=== PATIENT | female | born 1940 ===

== ENCOUNTER 2017-04-02 12:50 | Emergency (ER) | payer OTHER ==
[~2017-04-02] VITALS: Ht 152.4 cm; Wt 40.8 kg
[2017-04-02] MEDS ORDERED: INSU300I SQ (13:04)
[2017-04-02] MEDS ORDERED: MEMA10TA PO (13:04)
[2017-04-02] MEDS ORDERED: FLUO10TA PO (13:04)
[2017-04-02] MEDS ORDERED: LORA10TA7 PO (13:04)
[2017-04-02] MEDS ORDERED: ATOR20TA PO (13:04)
--- NOTE | 2017-04-02 13:05 | NUR ---
DR GENAO AT THE BEDSIDE FOR EVAL AND EXAM.
[2017-04-02] MEDS ORDERED: IV NORMAL SALINE 1000 ML BAG IV ONE (13:15)
[2017-04-02] MEDS ORDERED: PANTOPRAZOLE SODIUM 40 MG VIAL IV ONE (13:15)
[2017-04-02] MEDS ORDERED: ONDANSETRON 4 MG/2 ML VIAL IV ONE (13:15)
[2017-04-02] MEDS ORDERED: PANTOPRAZOLE SODIUM 40 MG VIAL ONE (13:35)
[2017-04-02] MEDS ORDERED: ONDANSETRON 4 MG/2 ML VIAL ONE (13:35)
[2017-04-02 14:00] LABS: EOSINOPHILS % (AUTO) 0.1 % (0.0-7.0); HEMATOCRIT 37.8 % (31.2-41.9); HEMOGLOBIN 12.5 g/dL (10.9-14.3); LYMPHOCYTES # (AUTO) 0.4 K/uL (20.0-40.0); LYMPHOCYTES % (AUTO) 3.6 % (20.5-51.5); MEAN CORPUSCULAR HEMOGLOBIN 27.3 uug (24.7-32.8); MEAN CORPUSCULAR HGB CONC 33 g/dL (32.3-35.6); MEAN CORPUSCULAR VOLUME 82.9 fL (75.5-95.3); MONOCYTES # (AUTO) 0.2 K/uL (2.0-10.0); MONOCYTES % (AUTO) 1.7 % (0.0-11.0); NEUTROPHILS # (AUTO) 11.1 K/uL (1.8-8.9); NEUTROPHILS % (AUTO) 94.6 % (38.5-71.5); PLATELET COUNT (AUTO) 416 K/uL (179-408); RED BLOOD CELL COUNT(AUTO) 4.56 MIL/uL (3.63-4.92); WHITE BLOOD COUNT (AUTO) 11.7 K/uL (3.8-11.8)
[2017-04-02 14:02] LABS: CARBON DIOXIDE 28 mmol/L (21-32); CHLORIDE 98 mmol/L (98-107); CREATININE 0.9 mg/dL (0.6-1.3); GLUCOSE 231 mg/dL (74-106); POTASSIUM 3.7 mmol/L (3.5-5.1); UREA NITROGEN, BLOOD 15 mg/dL (7-18)
[2017-04-02 14:19] LABS: ALANINE AMINOTRANSFERASE 18 U/L (14-59); ALKALINE PHOSPHATASE 129 U/L (50-136); ASPARTATE AMINOTRANSFERASE 16 U/L (15-37); BAND % (MANUAL) 4 % (0-10); BILIRUBIN,DIRECT 0.2 mg/dL (0.0-0.2); BILIRUBIN,TOTAL 0.6 mg/dL (0.2-1.0); LYMPHOCYTES % (MANUAL) 2 % (20-40); MONOCYTES % (MANUAL) 2 % (2-10); NEUTROPHILS % (MANUAL) 92 % (42-75); TOTAL PROTEIN, SERUM 8.3 g/dL (6.4-8.2)
--- NOTE | 2017-04-02 14:58 | NUR ---
Patient is resting comfortably in bed with eyes closed, no nausea/vomiting so far. Zofran effective.
--- NOTE | 2017-04-02 16:29 | NUR ---
URINE COLLECTED AND SENT TO LAB.
[2017-04-02 16:35] LABS: *BLOOD, URINE 2+ (NEGATIVE); *COLOR,URINE YELLOW (YELLOW); *KETONES,URINE 1+ (NEGATIVE); *PROTEIN,URINE 1+ (NEGATIVE); LEUKOCYTE ESTERASE ,URINE 1+ (NEGATIVE); NITRITE, URINE NEGATIVE (NEGATIVE); PH,URINE 8.5 (5.0-8.0); UGLUCOSE NEGATIVE (NEGATIVE)
[2017-04-02 16:41] LABS: *CLARITY,URINE SLIGHTLY HAZY (CLEAR)
[2017-04-02 16:42] LABS: *BILIRUBIN,URIN NEGATIVE (NEGATIVE)
[2017-04-02 16:59] LABS: RBC,URINE 20-50 /HPF (0-3)
[2017-04-02 17:00] LABS: BACTERIA,URINE MODERATE /HPF (NONE SEEN); MUCUS,URINE MANY /LPF (0-FEW); SQUAMOUS EPITHELIAL CELL,UR MODERATE /HPF (NONE SEEN)
--- NOTE | 2017-04-02 17:39 | NUR ---
CALLED [facility] FOR PT TRANSFER, ETA [phone]. TRIP # [id number].
--- NOTE | 2017-04-02 17:41 | NUR ---
CALLED [facility] AND SPOKE TO [facility] PT RETURN TO FACILITY.
--- NOTE | 2017-04-02 18:15 | NUR ---
PT TOLORATE PO INTAKE, DENIES N/V.
--- NOTE | 2017-04-02 21:51 | NUR ---
Patient discharged to home in stable conditon. Written and verbal after care instructions given. Patient verbalizes understanding of instructions.
== END 2017-04-02 21:53 | disposition home or self-care (01) ==
LOC: ER 12:50
DX: S22.42XA Multiple fractures of ribs, left side, initial encounter for closed fracture (principal); R11.2 Nausea with vomiting, unspecified; F02.80 Dementia in other diseases classified elsewhere, unspecified severity, without behavioral disturbance, psychotic disturbance, mood disturbance, and anxiety; G30.9 Alzheimer's disease, unspecified; E11.9 Type 2 diabetes mellitus without complications; Z79.4 Long term (current) use of insulin; Z90.49 Acquired absence of other specified parts of digestive tract; X58.XXXA Exposure to other specified factors, initial encounter; Y93.89 Activity, other specified; Y92.89 Other specified places as the place of occurrence of the external cause; Y99.8 Other external cause status
CPT/HCPCS: 36415; 70030-TC; 71045; 83605; 85025; 85730; 87040; 87086; 87400; 93005; A4663; C9113; J2405; J7030

== ENCOUNTER 2017-08-25 23:22 | Emergency (ER) | payer OTHER ==
[~2017-08-25] VITALS: Ht 147.3 cm; Wt 45.4 kg
[~2017-08-25 23:22] MED LIST: ATOR20TA PO; FLUO10TA PO; INSU300I SQ; LORA10TA7 PO; MEMA10TA PO
--- NOTE | 2017-08-25 23:53 | NUR ---
Patient in bed, patient states she has not had a BM for 3 days. She denies ABD pain at this time, but is concerned about some ABD distension. Attempted to call [facility] for report, spoke to Elaine at this facility. Elaine is unable to provide details on the patient primary complaint prior to arrival. Patient in bed, NSR on cardiac cath technologist. VSS. Respirations even and unlabored. no cardiovascular distress noted. No c/o chest pain.
--- NOTE | 2017-08-25 23:56 | NUR ---
Xray notified patient is ready for imaging.
[2017-08-26 00:03] LABS: BASOPHILS # (AUTO) 0.1 K/uL (0.0-8.0); EOSINOPHILS # (AUTO) 0.2 K/uL (0.0-0.7); EOSINOPHILS % (AUTO) 1.6 % (0.0-7.0); HEMATOCRIT 35.1 % (31.2-41.9); HEMOGLOBIN 11.9 g/dL (10.9-14.3); LYMPHOCYTES % (AUTO) 29.1 % (20.5-51.5); MEAN CORPUSCULAR HEMOGLOBIN 27.8 uug (24.7-32.8); MEAN CORPUSCULAR HGB CONC 34 g/dL (32.3-35.6); MEAN CORPUSCULAR VOLUME 82.3 fL (75.5-95.3); MONOCYTES # (AUTO) 0.7 K/uL (2.0-10.0); MONOCYTES % (AUTO) 6.3 % (0.0-11.0); NEUTROPHILS # (AUTO) 6.5 K/uL (1.8-8.9); PLATELET COUNT (AUTO) 268 K/uL (179-408); RED BLOOD CELL COUNT(AUTO) 4.26 MIL/uL (3.63-4.92); WHITE BLOOD COUNT (AUTO) 10.4 K/uL (3.8-11.8)
[2017-08-26 00:16] LABS: CARBON DIOXIDE 29 mmol/L (21-32); CHLORIDE 101 mmol/L (98-107); CREATININE 0.9 mg/dL (0.6-1.3); POTASSIUM 3.6 mmol/L (3.5-5.1); UREA NITROGEN, BLOOD 16 mg/dL (7-18)
[2017-08-26 00:18] LABS: GLUCOSE 307 mg/dL (74-106)
[2017-08-26 00:29] LABS: ALANINE AMINOTRANSFERASE 17 U/L (14-59); ALKALINE PHOSPHATASE 155 U/L (50-136); ASPARTATE AMINOTRANSFERASE 15 U/L (15-37); BILIRUBIN,DIRECT < 0.1 mg/dL (0.0-0.2); BILIRUBIN,TOTAL 0.2 mg/dL (0.2-1.0); TOTAL PROTEIN, SERUM 6.8 g/dL (6.4-8.2)
--- NOTE | 2017-08-26 01:26 | NUR ---
Patient remains in bed, no acute distress noted. Patient does not endorse ABD pain at this time.
[2017-08-26 01:40] LABS: *BILIRUBIN,URIN NEGATIVE (NEGATIVE); *BLOOD, URINE NEGATIVE (NEGATIVE); *CLARITY,URINE CLEAR (CLEAR); *COLOR,URINE YELLOW (YELLOW); *KETONES,URINE NEGATIVE (NEGATIVE); *PROTEIN,URINE NEGATIVE (NEGATIVE); *UROBILINOGEN,URINE 0.2 E.U./dl (NORMAL); LEUKOCYTE ESTERASE ,URINE TRACE (NEGATIVE); NITRITE, URINE NEGATIVE (NEGATIVE)
[2017-08-26 01:47] LABS: UGLUCOSE 2+ (NEGATIVE)
[2017-08-26 01:51] LABS: BACTERIA,URINE NONE SEEN /HPF (NONE SEEN); RBC,URINE 0-3 /HPF (0-3); SQUAMOUS EPITHELIAL CELL,UR FEW /HPF (NONE SEEN)
--- NOTE | 2017-08-26 02:39 | NUR ---
[facility] Awaiting call back for further details. patient remain in bed, no acute distress noted. VSS
--- NOTE | 2017-08-26 03:40 | NUR ---
Patient remains in bed, no acute distress noted. VSS. Awaiting call back from [facility] regarding patient placement.
--- NOTE | 2017-08-26 05:21 | NUR ---
Call placed to [facility]. ER on phone with Dr Prado ([facility]) for patient report. Still no update on patient accepting facility/bed availability. Patient updated on plan of care. Patient resting in bed, no acute distress noted. VSS
--- NOTE | 2017-08-26 05:29 | NUR ---
Per Johan Haq MD, he will arrange GI to follow up with the patient at her Assisted Living facility. Patient is cleared to return to previous level of care. [facility] updated on patient plan of care.
--- NOTE | 2017-08-26 05:38 | NUR ---
Spoke with Nancy from [facility]. [facility] for patient transport to previous level of care is [phone]. Confirmation #[id number]
--- NOTE | 2017-08-26 06:15 | NUR ---
[facility] Patient discharged to home in stable conditon. Written and verbal after care instructions given. Patient verbalizes understanding of instructions. All belongings with patient. Copies of chart/imaging/imaging disk provided to patient. Peripheral IV removed prior to d/c.
[2017-08-26 06:19] VITALS: BP 138/84
--- NOTE | 2017-08-26 06:19 | NUR ---
Report given to Elaine at [facility]
== END 2017-08-26 06:20 | disposition home or self-care (01) ==
LOC: ER 23:22
DX: R10.9 Unspecified abdominal pain (principal); K21.9 Gastro-esophageal reflux disease without esophagitis; E11.9 Type 2 diabetes mellitus without complications; Z79.4 Long term (current) use of insulin; Z79.899 Other long term (current) drug therapy
CPT/HCPCS: 36415; 70030-TC; 71045; 83605; 83690; 85025; 85730; 87040; 87086; 93005; A4663